=== PATIENT | female | born 1990 | race Caucasian/White ===

== ENCOUNTER 2022-06-09 07:55 | Outpatient (CLI) | payer BC, SELFPAY ==
--- NOTE | 2022-06-09 08:15 | CRLHL7_ITS ---
For Patients: As a result of the Century Cures Act, medical imaging exams and procedure reports are released immediately into your electronic medical record. You may view this report before your referring provider. If you have questions, please contact your health care provider. INDICATION: First trimester scan, establish dates. COMPARISON: None. TECHNIQUE: Real-time patino-scale imaging of the pelvis was performed. FINDINGS: Sonographic imaging demonstrates a single living intrauterine gestation. The embryo demonstrates a regular cardiac rate measuring 174 beats per minute. The embryo`s crown-rump length measurement of 2.4 cm corresponds to a gestational age of 9 weeks 1 day with a sonographic due date of 01/11/2023. There is a normal-appearing yolk sac. There are no gross abnormalities noted within the embryo at this early state of development. The gestational sac has a normal appearance. There is no evidence of a perigestational hemorrhage. The amount of fluid within the sac appears appropriate for gestational age. The cervix is closed. Right fundal uterine fibroid measuring 2.4 x 1.6 x 1.8 cm. Incidental complex fluid noted within the Caesarean section scar measuring 2.3 x 1.4 x 2.1 cm. Some heterogeneity noted within the right uterine fundal region of doubtful significance. The ovaries are of normal size. There are no suspicious fluid collections noted in the cul-de-sac. IMPRESSION: Single living intrauterine with sonographic gestational age 9 weeks 1 day and sonographic due date 01/11/2023. Dictated by Johnathan Uribe MD @ 06/09/2022 9:10:52 AM (Electronically Signed)
== END 2022-06-09 07:56 | disposition home or self-care (01) ==
LOC: US 07:57
PROVIDERS: Visit Provider Registered Nurse
DX: O21.1 Hyperemesis gravidarum with metabolic disturbance (principal); Z3A.09 9 weeks gestation of pregnancy
CPT/HCPCS: 76817; 86592; 86703; 86762; 86787; 86803; 86850; 86900; 86901; 87086; 87340; 87491; 87591

== ENCOUNTER 2022-09-04 12:52 | Outpatient (CLI) | payer BC, SELFPAY ==
--- NOTE | 2022-09-04 13:00 | CRLHL7_ITS ---
For Patients: As a result of the Century Cures Act, medical imaging exams and procedure reports are released immediately into your electronic medical record. You may view this report before your referring provider. If you have questions, please contact your health care provider. INDICATION: Evaluate anatomy. COMPARISON: 06/09/2022 TECHNIQUE: Real time patino scale imaging of the fetus was performed as well as color Doppler analysis of the umbilical vessels. FINDINGS: Sonographic imaging demonstrates a single living intrauterine gestation. Fetus demonstrates a regular cardiac rate of 144 beats per minute. Fetus has a vertex position. The placenta lies anteriorly without evidence of placenta previa. The edge of the placenta is located 7.3 cm from the internal cervical os. Amniotic fluid volume appears normal. Single deepest vertical pocket: 5.8 cm. The cervix is closed and measures 3.8 cm in length. The composite ultrasound gestational age is calculated at 22 weeks 2 days with an estimated sonographic due date of 01/06/2023. The estimated weight is 453 grams which lies at the 73rd %. The following biometric measurements were obtained: Biparietal diameter: 5.4 cm/22 weeks 3 days 88th% Head circumference: 19.8 cm/22 weeks 0 days 69th% Abdominal circumference: 17.2 cm/22 weeks 1 day 71st% Femur length: 3.6 cm/21 weeks 2 days 41st% The HC/AC ratio measures: 1.15 range (1.05-1.22) On anatomic survey, there is a normal appearance of the cerebral ventricles, cavum septi pellucidi, cisterna magna and cerebellum. The nose, lips, and facial profile appear normal. The cervical, thoracic and lumbar spine are well visualized and appear normal. There is a normal four-chamber heart view and the left and right ventricular outflow tracts appear normal. The diaphragm and stomach appear normal. The kidneys and bladder also appear normal. There is a normal three-vessel cord and cord insertion site. The four extremities appear normal. IMPRESSION: Sonographic gestational age 22 weeks 2 days and sonographic due date 01/06/2023. Sonographic age 1 week ahead of the clinical age. Estimated weight 73rd percentile. Abdominal circumference 71st percentile. No intrinsic abnormalities noted on anatomic survey. Anterior uterine fibroid arising from the right uterine fundus again noted measuring 2.4 x 1.6 x 3.0 cm. Dictated by Johnathan Uribe MD @ 09/05/2022 11:37:03 AM (Electronically Signed)
== END 2022-09-04 12:53 | disposition home or self-care (01) ==
LOC: US 12:53
PROVIDERS: Visit Provider Obstetrics & Gynecology
DX: Z34.92 Encounter for supervision of normal pregnancy, unspecified, second trimester (principal); Z3A.22 22 weeks gestation of pregnancy
CPT/HCPCS: 76805

== ENCOUNTER 2022-12-06 09:18 | Outpatient (CLI) | payer BC, SELFPAY ==
[2022-12-06 09:31] VITALS: PULSE 70; O2SAT 99
[2022-12-06 09:32] VITALS: BP 134/79; PULSE 73
[2022-12-06 09:36] VITALS: PULSE 77; O2SAT 99
[2022-12-06 09:41] VITALS: PULSE 79; O2SAT 99
[2022-12-06 09:46] VITALS: PULSE 97; O2SAT 98
--- NOTE | 2022-12-06 10:47 | PC.OBNST ---
NST Note NST Note Start: 12/06/22 09:32 Freq: ONCE Status: Active Protocol: Document 12/06/22 10:43 SD (Rec: 12/06/22 10:46 SD [id number]) NST Note 2 Para (# of births) 1 EDC 01/13/23 Gestational Age In Weeks & Days 34 Weeks & 4 Days Patient Presented with Complaint(s) of Decreased movement Reactive Yes Appropriate for Gestational Age Yes RN Juan Hyatt RN Date 12/06/22 Reactive Yes Appropriate for Gestational Age Yes RAHEL Argueta RN Date 12/06/22 OB NST charge Yes Complete NST Note via Write Note Yes The provider's electronic signature indicates the NST is reactive/appropriate for gestational age. *Note to provider: If an addendum is required, open the patient's chart and click on the note under the Nurse/Allied Health tab.
== END 2022-12-06 10:52 | disposition home or self-care (01) ==
LOC: OB OUT 09:18 → OB 09:19
PROVIDERS: Visit Provider Obstetrics & Gynecology
DX: O36.8130 Decreased fetal movements, third trimester, not applicable or unspecified (principal); Z3A.34 34 weeks gestation of pregnancy
CPT/HCPCS: 59025; 99213

== ENCOUNTER 2022-12-15 12:49 | Outpatient (CLI) | payer BC, SELFPAY ==
--- NOTE | 2022-12-15 13:00 | CRLHL7_ITS ---
For Patients: As a result of the Century Cures Act, medical imaging exams and procedure reports are released immediately into your electronic medical record. You may view this report before your referring provider. If you have questions, please contact your health care provider. INDICATION: Third trimester scan, evaluate growth. COMPARISON: 09/04/2022 TECHNIQUE: Real time patino scale imaging of the fetus was performed. FINDINGS: Sonographic imaging demonstrates a single living intrauterine gestation. Fetus demonstrates a regular cardiac rate of 125 beats per minute. Fetus has a vertex position. The placenta lies anteriorly. Amniotic fluid volume appears normal and there is a single deepest vertical pocket: 7.2 cm. The estimated weight is 2942gm which lies at the 67th %. On the prior OB ultrasound exam dated 09/04/2022 the estimated weight was at the 73rd%. BPD 29th percentile. HC 66th percentile. AC 95th percentile. FL 7th percentile. The HC/AC ratio measures 0.98 range (0.93-1.08). IMPRESSION: Sonographic gestational age 36 weeks 0 days and sonographic due date 01/13/2023. Good correlation with dates. Normal interval growth. Estimated weight 67th percentile. Abdominal circumference 95th percentile. Anterior uterine fibroid measuring 2.1 x 1.0 x 2.5 cm. Previously, this measured 2.4 x 1.6 x 3.0 cm. Dictated by Johnathan Uribe MD @ 12/15/2022 1:44:57 PM (Electronically Signed)
== END 2022-12-15 12:50 | disposition home or self-care (01) ==
LOC: US 12:50
PROVIDERS: Visit Provider Obstetrics & Gynecology
DX: Z34.93 Encounter for supervision of normal pregnancy, unspecified, third trimester (principal); O34.13 Maternal care for benign tumor of corpus uteri, third trimester; D25.9 Leiomyoma of uterus, unspecified; Z3A.36 36 weeks gestation of pregnancy
CPT/HCPCS: 76816; 87081; 87653

== ENCOUNTER 2023-01-06 05:11 | Inpatient (IN) | payer BC, SELFPAY ==
[2023-01-06] VITALS (31 sets, daily range): BP systolic 102–134; BP diastolic 56–85; PULSE 71–100; RESP 16–20; TEMP 36.3–37.1; O2SAT 96–100; BMI 26.5
--- NOTE | 2023-01-06 05:02 | W.PM.LDBA ---
Subjective History of Present Illness Date Seen: 01/06/23 Narrative: Patient is being admitted to Labor and Delivery for active labor. She is a 32 year old at 39.0 weeks gestation. Her full history and physical was dictated by Balbina Barrera CNM on 12/27/22. Please see this for details. She was awoken by contractions around 0030 and they were about every 6 mins at that time. Contractions gradually increased in frequency and intensity and she decided it was time to arrange to come to the hospital [id number]. She was found to be 8cm when she arrived to the unit. She did SROM shortly after admission with a small amount of clear fluid. 1. Previous for arrest of descent (Pushed X 2 hours) Operative report: Vertex but position otherwise not reported. Single layer closure. Infant 7 lbs 11 oz. Wants TOLAC Likelihood of success 63.3%. Given TOLAC consent for review 08/02/22, signed 11/15/22. Growth us at 36 weeks ordered on 11/15/22: 67%ile2. N+V. B6, Unisom (did not tolerate), Rx Zofran 3. Anxiety and Depression. 200 mg Zoloft. 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 Seeing therapist. Doing well at first OB. PHQ 5 SUGAR 7 4. H/o alcohol dependence. Sober since 2018. 5. Right fundal uterine fibroid measuring 2.4 x 1.6 x1.8 cm. 3 cm in greatest dimension on 20 week scan. 2.1x1x2.5 cm at 36 weeks 6. Patient was a twin, born at 26 wks; had heart surgery and blood transfusion as baby 7. History of atypical nevus R shoulder. OB - Problem Based A/P Additional Plan (1) Previous delivery affecting : Status: Acute (2) Encounter for trial of labor: Status: Acute (3) : Status: Acute (4) Pain during labor: Status: Acute Plan ASSESSMENT:? at 39.0 weeks gestation? GBS negative? complicated by a previous sections. Desires TOLAC.? PLAN:? 1. Candidate for analgesia of choice. Planning unmedicated .? 2. Desires TOLAC. Consent previously signed. 3. Anticipate ? 4. Expectant management at this time.? 5. IV in place and continuous monitoring per policy. Delivery/Labor/Induction Plan Plan: expectant management OB Result Labs Blood Type: O (+) positive GBS Status: negative OB Exam Physical Exam Vital signs: Temp Pulse Resp BP 97.9 F 84 18 128/85 01/06/23 03:36 01/06/23 03:35 01/06/23 03:36 01/06/23 03:35 Narrative: Vitals per EMR? Psychiatric:? Alert and oriented x3? HEENT:? Normocephalic, atraumatic? Neck:? Supple without adenopathy or thyromegaly? Lungs:? Clear to auscultation bilaterally? Heart:? Regular rate and rhythm, no murmur, rub or gallop? Abdomen:? Soft, nontender, and gravid? Extremities:? No edema or erythema? Detailed Labor and Delivery Exam Patient Gravid: Yes Dilation (cm): 8 (per RN exam) Contraction Frequency: 2-4 min Contraction intensity: Strong/Firm Fetus (Single) Amniotic Membrane Status: SROM Amniotic Membrane Fluid Description: Clear Heart Rate Baseline: 140 Monitor Accelerations: Present Monitor Decelerations: Variable (occasional) Halfway Variability: Moderate (6-25)
[2023-01-06 06:19] LABS: Basophils Percent Auto 0.7 % (0.0-3.0); Eosinophils Percent Auto 1.2 % (0.0-7.0); Hematocrit 35.4 % (33.0-51.0); Hemoglobin* 11.3 gm/dL (12.0-16.0); Immature Granulocytes Pct Auto 0.8 %; Lymphocytes Percent Auto 15.9 % (20-44); Mean Corpuscular HGB Conc 32 gm/dL (32-36); Mean Corpuscular Hemoglobin 26 pg (26-34); Mean Corpuscular Volume 82 fL (80-100); Monocytes Percent Auto 7.2 % (0.0-11.0); Neutrophils Percent Auto 74.2 % (42.0-72.0); Platelet Count* 251 K/uL (140-440); RDW Coefficient of Variation % 13.3 % (11.5-15.5); Red Blood Count 4.31 m/uL (4.00-5.20); White Blood Count* 12.11 K/uL (4.50-11.00)
[2023-01-06 07:11] LABS: Slide Review Reflex No
[2023-01-06] MEDS: diphenhydrAMINE 50 MG/ML inj 25 MG IVP (08:13)
[2023-01-06] MEDS: LACTATED RINGERS 1000 ML 1,000 ML IV (09:08)
[2023-01-06] MEDS: TERBUTALINE 1 MG/ML INJ 0.25 MG SUBCUT (09:14)
[2023-01-06] MEDS: CEFAZOLIN 2 GM INJ IVP (09:31)
--- NOTE | 2023-01-06 10:42 | P.OBPRC_ITS ---
Procedure Date of procedure: 01/06/23 Pre-op diagnosis: Arrest of dilation in setting of TOLAC Post-op diagnosis: same Procedure Done: Global Will [facility] bill your pro fee for this procedure?: Yes Blood Loss Measurement Type: QBL (462 cc) Bakri Used: No IV fluids (mL): 1,500 Urine Output (mL): 200 Surgeon: Jayne Tripp MD Anesthesia type: Spinal Findings: 1. Female infant, cephalic OP presentation, Apgars of 4 and 9, weight 3455 g. 2. Serosal adhesions surrounding the bladder reflection. Otherwise normal appearance of uterus, bilateral tubes and ovaries. Procedure Description: PROCEDURE IN DETAIL: Patient was taken to the operating room with IV running. She received cefazolin in preoperative prophylaxis. Spinal anesthesia had previously been administered. Dasilva catheter was inserted. She was prepped and draped in the usual sterile fashion. Anesthesia was tested and found to be adequate. A low-transverse skin incision was made with a scalpel and carried through to the underlying layer of fascia with the scalpel. The subcutaneous fat was dissected off the underlying fascia with Bovie. The fascia was nicked in the midline with a scalpel, and this incision was extended laterally with scissors. The rectus muscles were in the midline. Peritoneum was identified and entered bluntly. There were serosal adhesions surrounding the lower uterine segment and bladder reflection which were lysed sharply. Scissors was used to widen this opening. Parag O retractor was inserted and tightened down, providing excellent visualization of the lower uterine segment. The bladder reflection was found to be well below the planned site for hysterotomy. Low-transverse uterine incision was made with a scalpel. Incision was widened bluntly. The infant's head was grasped through the hysterotomy and delivered with the help of fundal pressure. The remainder of the body delivered without incident. Cord was clamped and cut after 30 seconds. was handed off to attending nurses. The placenta was delivered with gentle traction on the cord. The uterus was cleaned of all clots and debris with the dry lap pad. The hysterotomy was reapproximated with 0 Vicryl in a running, locked fashion. Second layer of the same suture was used in imbricating fashion to obtain hemostasis. The adnexa were examined and noted to be normal in appearance. The cul-de-sac and gutters were cleansed with dampened laparotomy sponge, removing any further clots and debris. The Parag O retractor was removed. The hysterotomy was reexamined and found to be hemostatic. The peritoneum was reapproximated with 2 0 Vicryl in a running fashion. The rectus muscles were examined and found to be hemostatic. The fascia was reapproximated with 0 Vicryl in a running fashion. Subcutaneous fat was irrigated and Bovie used on oozing vessels. The subcutaneous fat was reapproximated with 2 0 plain gut suture in an interrupted fashion. [] The skin was closed with a subcuticular stitch of 4-0 Vicryl. Surgical glue was applied above this. Patient tolerated procedure well was taken to recovery area in stable condition. Condition: stable Disposition: floor OB Delivery Proc Additional Procedures Tubal Ligation at the time of : No
--- NOTE | 2023-01-06 10:52 | P.OBCN_ITS ---
OB - CN: HPI Date of Consult Date Seen: 01/06/23 Patient: [facility] Patient Consult date: 01/06/23 Requesting Physician: Beth Barrera CNM Primary Care Provider: Not a Local Provider Consult Narrative Narrative: The patient is a 32 year old G2 P 1-0-0-1 woman at 39 0/7 weeks gestation that was admitted to the Center on 01/06/23 for active labor. OB PROBLEM LIST: 1. Previous for arrest of descent (Pushed X 2 hours) * Operative report: Vertex but position otherwise not reported. Single layer closure. 7 lbs 11 oz. * Wants TOLAC * Likelihood of success 63.3%. * Given TOLAC consent for review 08/02/22, signed 11/15/22. * Growth us at 36 weeks ordered on 11/15/22: 67%ile2. N+V. B6, Unisom (did not tolerate), Rx Zofran3. Anxiety and Depression. 200 mg Zoloft. 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 Seeing therapist. Doing well at first OB. PHQ 5 SUGAR 7 4. H/o alcohol dependence. Sober since 2018. 5. Right fundal uterine fibroid measuring 2.4 x 1.6 x1.8 cm. 3 cm in greatest dimension on 20 week scan. 2.1x1x2.5 cm at 36 weeks 6. Patient was a twin, born at 26 wks; had heart surgery and blood transfusion as baby 7. History of atypical nevus R shoulder. At the time of my consult, the patient had been at an anterior lip for about 4 hours, unmedicated, and with a strong urge to push. Despite this, station remained high. tracing was category 2, with recurrent brief variable decelerations and moderate variability. After her last exam showed no change in dilation, she requested repeat . History History 2 Elective abortions Para 1 Spontaneous abortions Hx # Term Pregnancies Ectopic pregnancies Hx # Pregnancies Multiple births Number of Living Children 1 Past Pregnancies Del. Date GA/Weeks Outcome Route wt Inf Gender Labor Lgth Anesthesia Location Provider Compli 02/09/10 40 live - full term low transverse 7 lb 11 oz Male 12 hours, pushed 4 hours before C/S spinal [place] Labs Blood type: O (+) positive GBS status: negative OB Labs: Lab Assessment Start: 01/06/23 03:52 Freq: ONCE Status: Complete Protocol: PC.OBGBS Activity Type Activity Date Activity User E-sign Co-sign Detail Recorded Client Recorded Date Recorded By Document 01/06/23 07:59 REBECCA [id number] 01/06/23 07:59 REBECCA 01/06/23 07:59 Lab Assessment GBS Status negative GBS Additional Criteria None No Treatment Needed OK Are Labs Available Yes Maternal Blood Type O Maternal RH Factor Positive Evaluate Maternal Rubella Immune Status Immune Hepatitis B Surface Antigen Negative Maternal HIV Status Negative Maternal Syphillis (RPR) Status Negative [facility] Medical History Former smoker ?Z87.891 - Personal history of nicotine dependence (ICD-10) Alcohol dependence ?F10.20 - Alcohol dependence, uncomplicated (ICD-10) Twin ?Z37.9 - Outcome of delivery, unspecified (ICD-10) Surgical History S/P section ?Z98.891 - History of uterine scar from previous surgery (ICD-10) S/P PDA repair ?Z87.74 - Personal history of (corrected) congenital malformations of heart and circulatory system (ICD-10) Social History (Updated 12/27/22 @ 15:02 by Beth Barrera CNM) Narrative: 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 Partner: Luis Fernando Lives with: and 3 kids in [place] Pets: no Confucianist/cultural needs: no. Chemical or radiation exposure: no. Pre- tobacco use: none since 2018 Pre- alcohol use: none since 2018 Current tobacco use: no. Current alcohol use:no Recreational drug use: no Dietary restrictions: no Blood transfusion acceptable in an emergency: yes Planning to breastfeed: yes What is your current living situation?: I presently have a place to live Problems where you live: no known problems In the past 12 months, utilities in danger of being shut off: no In the past 12 mos, have been you worried that your food would run out before you had money to buy more?: never true In the past 12 mos, the food you bought just didn't last and you didn't have money to buy more?: never true Smoking Status: Former smoker How often does anyone, including family, friends and others, physically hurt you : never How often does anyone, including family, friends and others, insult or talk down to you: never How often does anyone, including family, friends and others, threaten you with harm: never How often does anyone, including family, friends and others, scream or curse at you: never Little interest or pleasure in doing things: several days Feeling down, depressed, or hopeless: several days Meds Home Medications and Allergies Home Medications Medication Instructions Recorded Confirmed Type sertraline 100 mg tablet (Zoloft) 200 mg PO QDAY 06/09/22 01/06/23 History omeprazole 20 mg capsule,delayed 20 mg PO QDAY 01/03/23 01/06/23 History release Allergies Allergy/AdvReac Type Severity Reaction Status Date / Time No Known Drug Allergies Allergy Verified 01/03/23 08:23 OB - H&P: Exam Physical Exam: Vital signs: Temp Pulse Resp BP 97.9 F 76 20 125/61 01/06/23 08:28 01/06/23 07:21 01/06/23 08:28 01/06/23 07:21 Narrative: Exam per formed in OR after spinal anesthesia revealed 9 cm dilation, station approximately -2, clear fluid. OB - Results Labs Labs: Short CBC 01/06/23 Range/Units 03:51 WBC 12.11 H (4.50-11.00) K/uL Hgb 11.3 L (12.0-16.0) gm/dL Hct 35.4 (33.0-51.0) % Plt Count 251 (140-440) K/uL OB - CN: A/P Assessment and Plan (1) Previous delivery affecting : Status: Acute Assessment and Plan: Arrest of dilation at 9 cm. Plan The patient requested delivery, and I support this plan. We discussed risks of , including bleeding, risk of blood transfusion, infection, damage to internal organs, thromboembolism, scarring. Consent form signed by patient.
--- NOTE | 2023-01-06 11:00 | W.PM.NB ---
Nerve Block Nerve Block Time Seen by Provider: 10:35 Date Seen: 01/06/23 Type of block requested by surgeon for post-operative analgesia: TAP Side: bilateral Time out performed: Yes Verification of patient name: Yes Verification of date of : Yes Site marking: not applicable Name of person performing procedure: Pete Lozano Continuous monitoring Was continuous monitoring of O2 sat, B/P, awake overnight monitor, recorded every 15 minutes?: Yes Procedure Checklist: sterile prep and gloves Ultrasound guided. Images saved: Yes Medications given in 5ml increments after negative aspiration: Marcaine %: 0.25 mL: 30 Needle gauge: 20 and Exparel mL: 10 Needle gauge: 20 Patient tolerated procedure well: Yes Block Charges Block Charge (with Pro Fee): TAP Bilateral Use of Ultrasound Machine for Block: Yes- US Guidance/pain block
--- NOTE | 2023-01-06 11:02 | P.ANES_ITS ---
Anesthesia Charges Start Date/Time Anesthesia Start Date: 01/06/23 Anesthesia Start Time: 09:17 Stop Date/Time Anesthesia Stop Date: 01/06/23 Anesthesia Stop Time: 10:44 Summary Emergency: EDGE BANDING OFF BEARER
[2023-01-06] MEDS: SERTRALINE 100 MG TABLET 200 MG PO (12:58)
[2023-01-06] MEDS: ACETAMINOPHEN 500 MG TABLET 1000 MG PO (12:59)
[2023-01-06] MEDS: diphenhydrAMINE 50 MG/ML inj 12.5 MG IVP (15:09)
[2023-01-06] MEDS: KETOROLAC 30 MG/ML inj IVP ×2 (16:31→22:31)
[2023-01-07] VITALS (11 sets, daily range): BP systolic 114–128; BP diastolic 60–75; PULSE 70–84; RESP 16–18; TEMP 36.4–37.1; O2SAT 97–98
[2023-01-07] MEDS: ACETAMINOPHEN 500 MG TABLET 1000 MG PO ×2 (00:58→18:30)
[2023-01-07] MEDS: KETOROLAC 30 MG/ML inj IVP ×3 (04:48→15:40)
[2023-01-07 06:56] LABS: Hemoglobin* 10.2 gm/dL (12.0-16.0)
[2023-01-07] MEDS: SERTRALINE 100 MG TABLET 200 MG PO (09:30)
[2023-01-07] MEDS: DOCUSATE SODIUM 100 MG CAPSULE PO (09:30)
--- NOTE | 2023-01-07 09:30 | PM.OBPNL ---
Subjective Time Seen by Provider: 09:00 (late entry) Date Seen: 01/06/23 Narrative: Wendy continued labor. Around 0452 she started to feel an urge to push but was able to breath through them. At 0520 that urge increased. SVE at that time showed an anterior lip. Attempted to reduce with the next contraction but was unable to. She continued to try to breath through contractions despite the urge to push and was involuntarily pushing with some contractions. At 0612 AROM was offered after feeling a bulging bag mostly posterior. She accepted and clear and blood streaked fluid was noted. FHR remained good. The urge to push continued to get stronger and she was involuntarily pushing. At 0633 the RN felt a possible cord prolapse. On exam by me there was not a cord felt and this was confirmed by Dr. Lowe. At that time a cervix was felt anteriorly as well as on the maternal left. She continued to labor changing positions frequently. She was offered IV Benadryl at 0813 as the cervix was not decreasing and there was suspicion for the cervix swelling. The urge continued to grow and she was pushing also constantly and was having difficulty coping. After consultation with Dr. Tripp it was offered to the patient to attempt a manual rotation. An epidural was encouraged for this as it would be difficult to tolerate without one. She was also offered a section for arrest of dilation. She choose to have a repeat section and consent was signed with her and Dr. Tripp around 0850. I stay with her and continued to provide support until after the delivery of her baby in the OR. Objective Vital Signs: Last Vital Signs Temp 98.1 F 01/07/23 08:00 Pulse 70 01/07/23 08:00 Resp 16 01/07/23 08:00 BP 121/70 01/07/23 08:00 Pulse Ox 98 01/07/23 08:00 O2 Del Method Room Air 01/07/23 08:00 Pelvic Exam Dilation (cm): 9.5 Effacement (%): 90 Contractions Contraction intensity: Strong/Firm Assessment Amniotic Membrane Status: SROM Heart Rate Baseline: 140 Monitor Accelerations: Present Monitor Decelerations: Variable (occasional) Plan Plan: Elected for a repeat caesarean section after attempted .
--- NOTE | 2023-01-07 10:05 | PM.OBPNVD1 ---
OB - PN:Subj Subjective Date Seen: 01/07/23 Interval history: Wendy is a 32 year old G2 now P 2-0-0-2 woman who is s/p repeat delivery at 39 0/7 weeks' gestation for indication of arrest of dilation in the setting of TOLAC. OB PROBLEM LIST: 1. Previous for arrest of descent (Pushed X 2 hours) Operative report: Vertex but position otherwise not reported. Single layer closure. Infant 7 lbs 11 oz. Wants TOLAC Likelihood of success 63.3%. Given TOLAC consent for review 08/02/22, signed 11/15/22. Growth us at 36 weeks ordered on 11/15/22: 67%ile 2. N+V. B6, Unisom (did not tolerate), Rx Zofran 3. Anxiety and Depression. 200 mg Zoloft. Sees life [employer]. Seeing therapist. Doing well at first OB. PHQ 5 SUGAR 7 4. H/o alcohol dependence. Sober since 2018. 5. Right fundal uterine fibroid measuring 2.4 x 1.6 x1.8 cm. 3 cm in greatest dimension on 20 week scan. 2.1x1x2.5 cm at 36 weeks. Not noted at time of . 6. Patient was a twin, born at 26 wks; had heart surgery and blood transfusion as baby 7. History of atypical nevus R shoulder. Narrative: Wendy has no complaints today. She is well. She is ambulating and urinating without difficulty. She has minimal pain and minimal bleeding. She is tolerating a regular diet, but has not yet passed flatus. She is at peace with her delivery experience. OB - PN: Obj Exam Physical Exam: Vital signs: Temp Pulse Resp BP Pulse Ox O2 Del Method 98.1 F 70 16 121/70 98 Room Air 01/07/23 08:00 01/07/23 08:00 01/07/23 08:00 01/07/23 08:00 01/07/23 08:00 01/07/23 08:00 Narrative: General: Pleasant, no acute distress Heart: Regular rate and rhythm, no murmur or gallop Lungs: Clear to auscultation bilaterally Abdomen: Normoactive bowel sounds. Soft, nontender, fundus well below umbilicus. Incision clean, dry, and intact Lower extremities: No edema or erythema Urinary Catheter Management: Urethral: Cath placed during this visit: yes, but has since been removed by the nurse Reason for continuing: decision to DC catheter Insertion date: 01/06/23 Insertion time: 09:30 Removal date: 01/06/23 Removal time: 22:45 OB - PN: Obj Data Labs Labs: Laboratory Results - last 24 hr 01/07/23 06:25 Hgb 10.2 L OB - PN: A/P Delivery Assessment and Plan (1) Status post repeat low transverse section: Status: Acute Assessment and Plan: For indication of arrest of dilation in the setting of TOLAC. Appropriate postoperative course. Follow for flatus. Otherwise, routine cares. Anticipate discharge tomorrow. (2) Anemia associated with acute blood loss: Status: Acute Assessment and Plan: Mild anemia. Begin ferrous sulfate every other day. Plan Plan: routine care
[2023-01-07] MEDS: FERROUS SULFATE 325 MG TABLET PO (10:44)
[2023-01-07] MEDS: OMEPRAZOLE 20 MG CAPSULE DR PO (16:24)
[2023-01-07] MEDS: IBUPROFEN 600 MG TABLET PO (22:14)
[2023-01-08 01:42] VITALS: BP 115/72; PULSE 82; RESP 18; TEMP 36.7; O2SAT 99
--- NOTE | 2023-01-08 08:06 | P.OBPN_ITS ---
OB - PN:Subj Subjective Date Seen: 01/08/23 Interval history: Wendy is a 32 year old G2 now P 2-0-0-2 woman who is s/p repeat delivery at 39 0/7 weeks' gestation for indication of arrest of dilation in the setting of TOLAC. OB PROBLEM LIST: 1. Previous for arrest of descent (Pushed X 2 hours) * Operative report: Vertex but position otherwise not reported. Single layer closure. Infant 7 lbs 11 oz. * Wants TOLAC * Likelihood of success 63.3%. * Given TOLAC consent for review 08/02/22, signed 11/15/22. * Growth us at 36 weeks ordered on 11/15/22: 67%ile 2. N+V. B6, Unisom (did not tolerate), Rx Zofran 3. Anxiety and Depression. 200 mg Zoloft. Sees child life specialist. Seeing therapist. Doing well at first OB. PHQ 5 SUGAR 7 4. H/o alcohol dependence. Sober since 2017. 5. Right fundal uterine fibroid measuring 2.4 x 1.6 x1.8 cm. 3 cm in greatest dimension on 20 week scan. 2.1x1x2.5 cm at 36 weeks. Not noted at time of . 6. Patient was a twin, born at 26 wks; had heart surgery and blood transfusion as baby 7. History of atypical nevus R shoulder. Narrative: Wendy is a 32 y.o. who was admitted to [facility] & D for spontaneous onset of labor. ?She had an uncomplicated for failure to progress.?The patient feels well. ?The pain is well controlled with current medications. ?She has no new complaints. ?She is breast feeding and reports things are going ok but would like additional support. Baby has been sleepy at the breast.? the patient has done well.? Vitals have been stable.? She has remained afebrile.? Has a good appetite, is tolerating a general diet. ?She is voiding without difficulty.? She is passing gas and has not had a bowel movement.? She is ambulating and denies any dizziness.? Has small amount of rubra lochia. OB - PN: Obj Exam Physical Exam: Vital signs: Temp Pulse Resp BP Pulse Ox O2 Del Method 98.1 F 82 18 115/72 99 Room Air 01/08/23 01:42 01/08/23 01:42 01/08/23 01:42 01/08/23 01:42 01/08/23 01:42 01/08/23 01:42 Narrative: GENERAL APPEARANCE:? normal affect, alert, no distress MOOD:? appropriate CHEST:? clear to auscultation HEART:? regular rate and rhythm ABDOMEN:? soft, non-tender the uterine fundus is at Umbilicus, Midline and is appropriate for the stage of recovery. EXTREMITIES:? normal and no edema INCISION: Healing well, no surrounding erythema, abnormal induration or discharge Urinary Catheter Management: Urethral: Cath placed during this visit: yes, but has since been removed by the nurse Reason for continuing: decision to DC catheter Insertion date: 01/06/23 Insertion time: 09:30 Removal date: 01/06/23 Removal time: 22:45 OB - PN: Obj Data Labs Labs: Laboratory Results - last 24 hr 01/06/23 03:51 Crossmatch (AHG) See Detail OB - PN: A/P Delivery Assessment and Plan (1) care and examination immediately after delivery: Status: Acute (2) Status post repeat low transverse section: Status: Acute (3) Anemia associated with acute blood loss: Status: Acute (4) Lactating mother: Status: Acute Plan day: 2 Plan: routine care Comments: Lactating mother. May see if desired. Anticipate discharge tomorrow. Pt desires to stay for additional support.
[2023-01-08 08:10] VITALS: BP 127/78; PULSE 85; RESP 18; TEMP 36.7; O2SAT 99
[2023-01-08] MEDS: SERTRALINE 100 MG TABLET 200 MG PO (08:21)
[2023-01-08] MEDS: IBUPROFEN 600 MG TABLET PO ×3 (08:22→21:28)
[2023-01-08] MEDS: DOCUSATE SODIUM 100 MG CAPSULE PO (08:22)
[2023-01-08] MEDS: ACETAMINOPHEN 500 MG TABLET 1000 MG PO ×2 (11:45→17:48)
[2023-01-08 15:58] VITALS: BP 135/87; PULSE 68; RESP 16; TEMP 36.7; O2SAT 99
[2023-01-09 01:39] VITALS: BP 127/84; PULSE 77; RESP 18; TEMP 36.6; O2SAT 100
[2023-01-09] MEDS: ACETAMINOPHEN 500 MG TABLET 1000 MG PO (01:45)
--- NOTE | 2023-01-09 07:23 | P.DS_ITS ---
DS: Providers Provider Time Seen by Provider: : Date Seen: 01/09/23 Date of admission: 01/06/23 05:11 Primary care physician: Not a Local Provider Admitting Clinician: Beth Barrera CNM Attending Physician on discharge: Beth Barrera CNM Date of Discharge: 01/09/23 DS: Diagnosis Discharge Diagnosis (1) Status post repeat low transverse section: Status: Acute (2) Lactating mother: Status: Acute Exam Narrative: Exam Narrative: VSS. ?Afebrile GENERAL APPEARANCE: ?normal affect, alert, no distress MOOD: ?appropriate HEENT: normocephalic, neck supple, full ROM CHEST: ?Symmetrical chest wall movement. ?Normal respiratory effort. ?Clear to auscultation HEART: ?regular rate and rhythm ABDOMEN: ?soft, non-tender. Uterine fundus is firm, at Umbilicus, Midline and is appropriate for the stage of recovery. ?Bowel sounds present. EXTREMITIES: ?normal and no edema SKIN: warm, dry. ? ?Incision clean/dry/well approximated. ?No signs of infection noted. Const: Vital Signs, click to edit/add: Vital Signs - 24 hr 01/08/23 08:10 01/08/23 15:58 01/09/23 01:39 Temperature 98.1 F 98.1 F 97.9 F Pulse Rate [Right Pulse Oximeter] 85 68 77 Respiratory Rate 18 16 18 Blood Pressure [Ri ght Arm] 127/78 135/87 127/84 Pulse Oximetry 99 99 100 Oxygen Delivery Me thod Room Air Room Air Room Air OB - DS: Summary Hospital Course Hospital Course: Wendy is a 32 y.o. G 2 P 2 who was admitted to [facility] for TOLAC. ?She had an uncomplicated . ? The patient feels well. ?The pain is well controlled with current medications. ?She has no new complaints. ?She is breast feeding and reports she is struggling. Baby does not latch well.? the patient has done well.? Vitals have been stable.? She has remained afebrile.? Has a good appetite, is tolerating a general diet. ?She is voiding without difficulty.? She is passing gas and has not had a bowel movement.? She is ambulating and denies any dizziness.? Has Small amount of rubra lochia. Problems: none plan: Discharge home with baby. Follow up in 2 weeks and 6 weeks. , baby not latching well. -Can work with peds and nursng for feeding plan. -Continue to pump routinely -follow up with Hx o depression and anxiety -Stable on zoloft at this time -Sees life care planner and therapist Peripartum Data Infant delivery method: Repeat Section (Labored, failed TOLAC) Procedures: Procedures Operation Date: 01/06/23 10:00 Actual Procedure Side Surgeon p Section Jayne Tripp MD complications: none [place] Infant Gender: Female Infant Discharge Plan: Home Status at Discharge Functional status at discharge: independent ambulation Overall status at discharge: patient is progressing back to baseline Time Spent with Patient Time attestation: Total time spent providing and/or coordinating discharge services: Time spent: Less than 30 minutes Discharge Plan Discharge Disposition: Home, Self-Care Date of Admission: 01/06/23 05:11 Attending Provider on Discharge: Linnette French Primary Care Provider: Provider,Not a Local Condition: Stable Anticipated Discharge Date/Time: 01/09/23 10:00 Discharge Medications: New docusate sodium 100 mg Capsule 100 mg PO BID PRNQty: 100 0RF Rx Instructions: Take 1 cap 1-2 times a day as needed for constipation ibuprofen 600 mg Tablet 600 mg PO Q6H PRN (Reason: Pain) Qty: 60 0RF oxycodone 5 mg Tablet 5 - 10 mg PO Q4H PRN (Reason: Pain) Qty: 20 0RF Continued sertraline [Zoloft] 100 mg tablet 200 mg PO QDAY omeprazole 20 mg capsule,delayed release(DR/EC) 20 mg PO QDAY Discharge Orders: Discharge Order (Routine); Ordered 01/09/23 Ordered By: Linnette French Patient Education: OB Over the Counter Medication Information, OB /Breast Feeding Additional Instructions: Follow up in 2 weeks and 6 weeks. Activity Level: Activity as Tolerated Discharge Diet: Regular Follow Up Appointments: Provider,Not a Local [Primary Care Provider] - Forms: [employer] (Closed) Info Instructions
[2023-01-09 07:45] VITALS: BP 113/64; PULSE 77; RESP 16; TEMP 36.8; O2SAT 99
[2023-01-09] MEDS: IBUPROFEN 600 MG TABLET PO (08:42)
[2023-01-09] MEDS: DOCUSATE SODIUM 100 MG CAPSULE PO (08:43)
[2023-01-09] MEDS: FERROUS SULFATE 325 MG TABLET PO (08:43)
[2023-01-09] MEDS: SERTRALINE 100 MG TABLET 200 MG PO (08:47)
== END 2023-01-09 11:45 | disposition home or self-care (01) | DRG 540 ==
LOC: OB OUT 05:12 → OB 08:56
PROVIDERS: Obstetrics & Gynecology; Admitting Provider Advanced Practice Midwife; Visit Provider Advanced Practice Midwife
PROC: 10D00Z1 Extraction of Products of Conception, Low, Open Approach (ICD-10-PCS; CPT 59514; principal; 2023-01-06 09:45)
DX: O34.211 Maternal care for low transverse scar from previous cesarean delivery (principal); O62.0 Primary inadequate contractions; O66.41 Failed attempted vaginal birth after previous cesarean delivery; O90.81 Anemia of the puerperium; D62 Acute posthemorrhagic anemia; O99.344 Other mental disorders complicating childbirth; F41.9 Anxiety disorder, unspecified; F32.A Depression, unspecified; Z37.0 Single live birth; Z3A.39 39 weeks gestation of pregnancy; G89.18 Other acute postprocedural pain
CPT/HCPCS: 01961; 36415; 64488; 76942; 85018; 85025; 86850; 86900; 86901; 86922; 99140; 99213; A9270; C9290; J0665; J0690; J1200; J1885; J2274; J2371; J2405; J2590; J3105; J7120

== ENCOUNTER 2024-06-11 08:44 | Outpatient (CLI) | payer BC, SELFPAY | END 2024-06-11 08:45 | disposition home or self-care (01) | LOC: NFLDREF 06-19 08:11 | DX: R30.0 Dysuria (principal); R05.9 Cough, unspecified; J98.9 Respiratory disorder, unspecified; J10.1 Influenza due to other identified influenza virus with other respiratory manifestations | CPT/HCPCS: 87086 ==

== ENCOUNTER 2024-08-04 09:11 | Outpatient (CLI) | payer BC, SELFPAY | END 2024-08-04 09:12 | disposition home or self-care (01) | LOC: NFLDREF 08-05 00:55 | DX: R30.0 Dysuria (principal) | CPT/HCPCS: 87086 ==

== ENCOUNTER 2024-08-14 08:51 | Outpatient (CLI) | payer BC, SELFPAY | END 2024-08-14 08:52 | disposition home or self-care (01) | LOC: NFLDREF 08-18 01:33 | PROVIDERS: Visit Provider Obstetrics & Gynecology | DX: N39.0 Urinary tract infection, site not specified (principal); B96.20 Unspecified Escherichia coli [E. coli] as the cause of diseases classified elsewhere | CPT/HCPCS: 87086 ==